=== PATIENT | female | born 1980 | race American Indian/Alaskan Native ===

== ENCOUNTER 2017-09-01 03:30 | Emergency (ER) | payer OTHER ==
[2017-09-01 03:30] VITALS: BMI 35.9
[2017-09-01 03:58] VITALS: RESP 18
[2017-09-01 04:18] LABS: URINE BILIRUBIN NEGATIVE (NEGATIVE); URINE BLOOD LARGE (NEGATIVE); URINE GLUCOSE (UA) NEGATIVE (NEGATIVE); URINE KETONE NEGATIVE (NEGATIVE); URINE LEUKOCYTE ESTERASE NEGATIVE Leu/uL (NEGATIVE); URINE PROTEIN NEGATIVE mg/dL (<30 mg/dL); URINE UROBILINOGEN 0.2 E.U./dL (<1 E.U./dL)
[2017-09-01 04:20] LABS: URINE APPEARANCE SL CLOUDY (CLEAR); URINE COLOR YELLOW (YELLOW)
--- NOTE | 2017-09-01 04:34 | ED PDOC ---
Arrival/HPI - General Chief Complaint: Back Pain Time Seen by Provider: 09/01/17 04:28 Historian: Patient - History of Present Illness Narrative History of Present Illness (Text): 09/01/17 04:35 A 37 year old female, whose past medical history includes seizures, not compliant with medications for two years, presents to the emergency department complaining of back pain since yesterday. Patient reports mid back pain, radiating to hip and through left lower extremity. Reports a tingling sensation in left thigh. Patient took 2 Ibuprofen tablets, 200 mg each. Notes she had back cramps a year ago due to sleeping position, different pain. Denies any history of spinal stenosis or arthritis. Denies lifting any heavy objects recently. Denies any other complaints at this time. Symptom Onset: Sudden Symptom Course: Unchanged Activities at Onset: Rest Context: Home Past Medical History - Provider Review Nursing Documentation Reviewed: Yes - Infectious Disease Hx of Infectious Diseases: None - Tetanus Immunization Tetanus Immunization: Unknown - Past Medical History Past Medical History: No Previous - Cardiac Hx Cardiac Disorders: No - Pulmonary Hx Respiratory Disorders: No - Neurological Hx Seizures: Yes - HEENT Hx HEENT Disorder: No - Renal Hx Renal Disorder: No - Endocrine/Metabolic Hx Endocrine Disorders: No - Hematological/Oncological Hx Blood Disorders: No - Integumentary Hx Dermatological Disorder: No - Musculoskeletal/Rheumatological Hx Musculoskeletal Disorders: No - Gastrointestinal Hx Gastrointestinal Disorders: No - Genitourinary/Gynecological Hx Genitourinary Disorders: No - Psychiatric Hx Psychophysiologic Disorder: No Hx Substance Use: No - Past Surgical History Past Surgical History: No Previous - Surgical History Hx Appendectomy: Yes Hx Cholecystectomy: Yes Other/Comment: exploratory lap, breast reduction - Anesthesia Hx Anesthesia: Yes Hx Anesthesia Reactions: No Hx Malignant Hyperthermia: No - Suicidal Assessment Feels Threatened In Home Enviroment: No Family/Social History - Physician Review Nursing Documentation Reviewed: Yes Family/Social History: No Known Family HX Smoking Status: Current Some Days Smoker Hx Alcohol Use: Yes Hx Substance Use: No Hx Substance Use Treatment: No Allergies/Home Meds Allergies/Adverse Reactions: Allergies fosphenytoin sodium [From Cerebyx] Allergy (Verified 08/13/16 22:40) ANAPHYLAXIS hydromorphone HCl [From Dilaudid] Allergy (Verified 08/13/16 22:40) ANAPHYLAXIS metoclopramide HCl [From Reglan] Allergy (Verified 08/13/16 22:40) ANAPHYLAXIS ondansetron HCl [From Zofran (as hydrochloride)] Allergy (Verified 08/13/16 22: 40) ANAPHYLAXIS Review of Systems - Physician Review All systems were reviewed & negative as marked: Yes - Review of Systems Constitutional: absent: Fevers Musculoskeletal: Back Pain (radiating to hip; left thigh tingling sensation), Other Physical Exam Vital Signs Reviewed: Yes Vital Signs Temp Pulse Resp BP Pulse Ox 09/01/17 05:30 98.7 F 80 18 132/82 100 09/01/17 03:54 98.2 F 78 18 128/76 99 Temperature: Afebrile Blood Pressure: Normal Pulse: Regular Respiratory Rate: Normal Appearance: Positive for: Well-Appearing, Non-Toxic, Comfortable Pain Distress: None Mental Status: Positive for: Alert and Oriented X 3 - Systems Exam Head: Present: Atraumatic, Normocephalic Pupils: Present: PERRL Extroacular Muscles: Present: EOMI Conjunctiva: Present: Normal Mouth: Present: Moist Mucous Membranes Neck: Present: Normal Range of Motion Respiratory/Chest: Present: Clear to Auscultation, Good Air Exchange. No: Respiratory Distress, Accessory Muscle Use Cardiovascular: Present: Regular Rate and Rhythm, Normal S1, S2. No: Murmurs Abdomen: Present: Normal Bowel Sounds. No: Tenderness, Distention, Peritoneal Signs Back: Present: Other (left sided paravertebral tenderness lumbar region) Upper Extremity: Present: Normal Inspection. No: Cyanosis, Edema Lower Extremity: Present: Normal Inspection. No: Edema Neurological: Present: GCS=15, CN II-XII Intact, Speech Normal Skin: Present: Warm, Dry, Normal Color. No: Rashes Psychiatric: Present: Alert, Oriented x 3, Normal Insight, Normal Concentration Medical Decision Making ED Course and Treatment: 09/01/17 04:31 Impression: A 37 year old female with back pain. Plan: -- labs -- Urinalysis -- Toradol and Valium -- Reassess and disposition Prior Visits: Notes and results from previous visits were reviewed. Patient was last seen in the emergency department on 08/13/16 for evaluation of left sided chest pain. Progress Notes: 09/01/17 05:38 On reevaluation, after given Valium and Toradol, patient has relief of back pain. Will give prescriptions for muscle relaxants and anti-inflammatory. Will discharge patient and advised to follow up with PMD. - Lab Interpretations Lab Results: Lab Results 09/01/17 01:10: Urine Color Yellow, Urine Appearance Sl cloudy, Urine pH 6.0, Ur Specific [place] >= 1.030, Urine Protein Negative, Urine Glucose (UA) Negative, Urine Ketones Negative, Urine Blood Large H, Urine Nitrate Negative, Urine Bilirubin Negative, Urine Urobilinogen 0.2, Ur Leukocyte Esterase Negative , Urine RBC 5 - 10, Urine WBC 0 - 2, Ur Epithelial Cells 0 - 2, Urine Bacteria Trace I have reviewed the lab results: Yes - Medication Orders Current Medication Orders: Discontinued Medications Diazepam (Valium) 5 mg PO ONCE ONE PRN Reason: Protocol Stop: 09/01/17 04:30 Last Admin: 09/01/17 04:39 Dose: 5 mg Ketorolac Tromethamine (Toradol) 60 mg IM STAT STA Stop: 09/01/17 04:29 Last Admin: 09/01/17 04:42 Dose: 60 mg MAR Pain Assessment Document 09/01/17 04:42 AB (Rec: 09/01/17 04:43 [id number]) Pain Reassessment Is this a pain reassessment? Yes Sleep Is patient sleeping during reassessment? No Presence of Pain Presence of Pain Yes Pain Scale Used Pain Scale Used Numeric Location Left, Right or Bilateral Bilateral Pain Location Body Site Back Description Description Intermittent Intensity of Pain at present 10 Pain Behavior Moaning Aggravating Factors Changing Position Alleviating Factors/Management Medication Techniques Alleviating Factors Medication IM Administration Charges Document 09/01/17 04:42 AB (Rec: 09/01/17 04:43 [id number]) Injection Site MAR Injection Site Right Gluteus Medius Charges for Administration # of IM Administrations 1 - Scribe Statement The provider has reviewed the documentation as recorded by the Rosaura eKe Provider Scribe Attestation: All medical record entries made by the Scribe were at my direction and personally dictated by me. I have reviewed the chart and agree that the record accurately reflects my personal performance of the history, physical exam, medical decision making, and the department course for this patient. I have also personally directed, reviewed, and agree with the discharge instructions and disposition. Disposition/Present on Arrival - Present on Arrival Any Indicators Present on Arrival: No History of DVT/PE: No History of Uncontrolled Diabetes: No Urinary Catheter: No History of Decub. Ulcer: No History Surgical Site Infection Following: None - Disposition Have Diagnosis and Disposition been Completed?: Yes Diagnosis: Lumbar radiculopathy, acute Disposition: HOME/ ROUTINE Disposition Time: 05:35 Patient Plan: Discharge Condition: GOOD Discharge Instructions (ExitCare): Lumbar Radiculopathy (ED), Back Exercises ( ED) Prescriptions: diaZEpam [Valium] 5 mg PO BID PRN #10 tab PRN Reason: Tension Naproxen [Naprosyn] 500 mg PO BID #20 tablet Referrals: Yessi Faulkner MD [Primary Care Provider] - Follow up with primary Forms: [facility] ([place]ian)
[2017-09-01 04:41] LABS: URINE BACTERIA TRACE (NEG); URINE EPITHELIAL CELLS 0 - 2 /hpf (0-5); URINE WBC 0 - 2 /hpf (0-6)
[2017-09-01 05:51] VITALS: BP 132/82; PULSE 80; TEMP 98.7; O2SAT 100
== END 2017-09-01 05:53 | disposition home or self-care (01) ==
LOC: ED 03:30
DX: M54.16 Radiculopathy, lumbar region (principal); F17.200 Nicotine dependence, unspecified, uncomplicated
CPT/HCPCS: 81001; 87086; 96372; 99283; J1885